=== PATIENT | female | born 1960 | race Caucasian/White ===

== ENCOUNTER 2016-12-23 08:48 | Day surgery (SDC) | payer BC ==
--- NOTE | ~2016-12-23 | EGD ---
EGD REPORT [facility] [address] [place] [address] NAME: BREA MCCANN : 60 STATUS : REG [facility]#: [id number] AGE: 56 ADM/REG DATE : 12/23/16 MR#: [id number] REPORT SERV DATE: 12/23/16 DICTATED BY: RICK NIELSEN DATE: 12/23/16 REPORT STATUS : Draft [facility]ANS[facility] BY: [facility] DATE: 12/23/16 [facility] Patient Name: Brea Mccann Date of : 1960 Attending MD: RICK NIELSEN MD Procedure Date No Time: 12/23/2016 Procedure: Colonoscopy Indications: High risk colon cancer surveillance: Personal history of colonic polyps Referring MD: RUTHANN WEATHERS Medicines: as per anesthesia Complications: No immediate complications. Procedure: Pre-Anesthesia Assessment: - ASA Grade Assessment: II - A patient with mild systemic disease. After I obtained informed consent, the scope was passed under direct vision. Throughout the procedure, the patient's blood pressure, pulse, and oxygen saturations were monitored continuously. The PCF [id number] was introduced through the anus and advanced to the cecum, identified by appendiceal orifice and ileocecal valve. The colonoscopy was performed without difficulty. The patient tolerated the procedure. The quality of the bowel preparation was adequate to identify polyps. Findings: The perianal and digital rectal examinations were normal. A sessile polyp was found in the descending colon. The polyp was 4 mm in size. The polyp was removed with a cold biopsy forceps. Resection and retrieval were complete. Many small and large-mouthed diverticula were found in the sigmoid colon, in the descending colon and in the transverse colon. Internal hemorrhoids were found during endoscopy and were mild. Impression: - One 4 mm polyp in the descending colon. Resected and retrieved. - Diverticulosis in the sigmoid colon, in the descending colon and in the transverse colon. - Internal hemorrhoids. Recommendation: - Await pathology results. - Repeat colonoscopy for surveillance based on pathology results. Procedure Code(s): --- Professional --- EGD REPORT [facility] [address] [place], [place] [address]. [address] NAME: BREA MCCANN : 60 STATUS : REG [facility]#: [id number] AGE: 56 ADM/REG DATE : 12/23/16 MR#: [id number] REPORT SERV DATE: 12/23/16 DICTATED BY: RICK NIELSEN DATE: 12/23/16 REPORT STATUS : Draft TRANSCRIBED BY: [email or web address] DATE: 12/23/16 22042, Colonoscopy, flexible, proximal to splenic flexure; with biopsy, single or multiple Diagnosis Code(s): --- Professional --- D12.4, Benign neoplasm of descending colon K64.8, Other hemorrhoids K57.30, Diverticulosis of large intestine without perforation or abscess without bleeding Z86.010, Personal history of colonic polyps CPT copyright 2013 [employer]. All rights reserved. The codes documented in this report are preliminary and upon child care supervisor review may be revised to meet current compliance requirements. RICK NIELSEN MD 12/23/2016 12:14 PM This report has been signed electronically. Number of Addenda: 0 Note Initiated On: 12/23/2016 11:40 AM Scope Withdrawal Time 0 hours 6 minutes 42 seconds [address] [facility] [place] [address]
[~2016-12-23 08:48] MED LIST: ALLEGRA180 PO; ATEN25 PO; CALTRA600D PO; DITRO5 PO; MULTI-VIT HP PO; NASONEX NAS; PROAIR HFA INH; SINGULAIR1 PO; TURMERIC PO; ZOL50 PO; ZYRTEC ALLGY10 MG PO
== END 2016-12-23 23:59 | disposition home or self-care (01) ==
LOC: DMU 08:48
PROVIDERS: Internal Medicine Gastroenterology
PROC: 0DBM8ZX Excision of Descending Colon, Via Natural or Artificial Opening Endoscopic, Diagnostic (ICD-10-PCS; principal; 2016-12-23 10:00)
DX: Z12.11 Encounter for screening for malignant neoplasm of colon (principal); D12.4 Benign neoplasm of descending colon; K64.8 Other hemorrhoids; K57.30 Diverticulosis of large intestine without perforation or abscess without bleeding; J45.909 Unspecified asthma, uncomplicated; Z86.010 Personal history of colon polyps; Z79.899 Other long term (current) drug therapy; Z98.890 Other specified postprocedural states
CPT/HCPCS: 88305